=== PATIENT | male | born 1940 | race Caucasian/White ===

== ENCOUNTER → 2016-12-05 | Outpatient (CLI) | payer MEDICARE ==
[~2016-12-05] MED LIST: ADV250INH INH; CIPR500T89 PO; FINA5TAB2 PO; FLAG500T PO; NORTRIPTYLINE PO; TAMS0.4C PO
--- NOTE | 2016-12-07 10:18 | SLEEPCENT ---
DATE OF PROCEDURE: 12/05/2016 ORDERED BY: Johana Alvarez Nocturnal polysomnography was performed for the titration of pressure therapy in this patient with obstructive sleep apnea syndrome and apnea-hypopnea index of 22.7. For testing, the patient was fit with a [id number] Quattro full face mask of medium size and 4 cm of water pressure were applied to the circuit and the lights were extinguished. 6 hours and 57 minutes of data were reviewed. There were 332 minutes of sleep identified. Sleep latency was short at 6 minutes. Rapid eye movement (REM) latency was short at 70 minutes. Sleep architecture was improved over the course of the study. There were 3 REM periods appreciated. There was a period of wake around 3:00 a.m. which reduced the sleep efficiency to 80.9%. The patient's electrocardiogram (EKG) showed a sinus rhythm with an average heart rate of 78 beats per minute. Electroencephalogram (EEG) showed reasonably normal waveforms for awake and sleep. Respiratory events were best palliated with CPAP at a pressure +7. CPAP tolerance was good. The remaining measures of sleep physiology were normal. IMPRESSION: Obstructive sleep apnea syndrome (G47.33). RECOMMENDATION: Nightly use of pressure therapy at 7 cm of water.
== END | disposition home or self-care (01) ==
LOC: M SLEEP 20:30
PROVIDERS: ATTEND Nurse Practitioner Adult Health
DX: G47.33 Obstructive sleep apnea (adult) (pediatric) (principal)

== ENCOUNTER → 2016-12-18 | Outpatient (REF) | payer MEDICARE | LOC: M LAB REF 10:28 | PROVIDERS: ATTEND Physician Assistant Medical | DX: M54.9 Dorsalgia, unspecified (principal) ==

== ENCOUNTER → 2019-03-07 | Outpatient (CLI) | payer MEDICARE ==
--- NOTE | 2019-03-07 12:35 | REP ---
RIGHT KNEE SERIES: Five views. HISTORY: Pain in the right knee. FINDINGS: Some clothing artifact is seen over the distal thigh. There is patellar spurring laterally on the sunrise view. There is a dystrophic calcification in the medial soft tissues anteriorly on the sunrise view as well. There are two or three dystrophic calcifications in the pretibial soft tissues. Bones, joints, and soft tissues are otherwise unremarkable. IMPRESSION: Lateral patellar spurring. No acute bony abnormality. There are a few dystrophic soft-tissue calcifications. Electronically Signed by Bismark Jenkins MD 03/07/2019 03:43 P
== END ==
LOC: M ADAMS 08:56
PROVIDERS: ATTEND Physician Assistant Medical
DX: M25.761 Osteophyte, right knee (principal)

== ENCOUNTER → 2019-05-30 | Outpatient (REF) | payer MEDICARE | LOC: M LAB REF 12:13 | PROVIDERS: ATTEND Physician Assistant Medical | DX: N39.0 Urinary tract infection, site not specified (principal) ==

== ENCOUNTER → 2019-06-27 | Outpatient (REF) | payer MEDICARE ==
[~2019-06-27] MED LIST changes: +AZO1TAB PO; +BRIM2OPD OU; +CEPH500C PO; +LEVA750T7 PO; +LEVO750T13 PO; +NORT10CA2 PO; +PRED10TA2 PO; +TAMS1CAP17 PO; +XALA0.007 OU
[2019-06-27 13:40] LABS: APPEARANCE, URINE CLEAR (CLEAR); BACTERIA, URINE AUTO NEGATIVE (NEGATIVE); BILIRUBIN, URINE AUTO NEGATIVE (NEGATIVE); BLOOD, URINE BLOOD NEGATIVE (NEGATIVE); COLOR, URINE YELLOW (YELLOW); GLUCOSE, URINE (UA) AUTO NEGATIVE (NEGATIVE); KETONE, URINE AUTO NEGATIVE (NEGATIVE); LEUKOCYTE ESTERASE, URINE AUTO NEGATIVE (NEGATIVE); NITRITE, URINE AUTO NEGATIVE (NEGATIVE); PROTEIN, URINE AUTO NEGATIVE (NEGATIVE); RBC, URINE AUTO 1 /HPF (0-3); SPECIFIC GRAVITY URINE AUTO 1.013 (1.002-1.035); SQUAMOUS EPITHELIAL CELL UR AU 0 /HPF (0-6); UROBILINOGEN, URINE AUTO 0.2 mg/dL (0.0-2.0); WBC, URINE AUTO 0 /HPF (0-3)
== END ==
LOC: M LAB REF 12:34
PROVIDERS: ATTEND Family Medicine
DX: R31.9 Hematuria, unspecified (principal)

== ENCOUNTER → 2019-09-12 | Outpatient (CLI) | payer MEDICARE ==
[~2019-09-12] MED LIST changes: -AZO1TAB PO; -BRIM2OPD OU; -CEPH500C PO; -LEVA750T7 PO; -LEVO750T13 PO; -NORT10CA2 PO; -PRED10TA2 PO; -TAMS1CAP17 PO; -XALA0.007 OU
--- NOTE | 2019-09-12 16:10 | REP ---
MRI brain/IACs: 09/12/2019. New indication: Hearing loss. New comparison: None. Technique: Multiplanar short and long TR sequences of the brain/IACs were performed without IV Gadolinium. Findings: The cerebellopontine/medullary angles and IACs are unremarkable. The membranous labyrinth are unremarkable as well. There are no areas of restricted diffusion. There is no intracranial mass effect or shift of the midline structures. The ventricles are mildly prominent, likely representing central greater than cortical volume loss. Chronic-appearing new left thalamic lacunar infarction is present. There are a few small foci of elevated T2 signal within the cerebral hemisphere white matter most consistent with sequelae of chronic small vessel disease. The midline structures, and craniocervical junction are unremarkable. Impression: Unremarkable IACs. 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 Electronically Signed by Michael Mcmillan DO 09/12/2019 04:02 P
== END ==
LOC: M RAD 14:39
PROVIDERS: ATTEND Otolaryngology
DX: H90.A22 Sensorineural hearing loss, unilateral, left ear, with restricted hearing on the contralateral side (principal)

== ENCOUNTER → 2019-10-05 | Outpatient (REF) | payer MEDICARE ==
[~2019-10-05] MED LIST changes: +AZO1TAB PO; +BRIM2OPD OU; +CEPH500C PO; +NORT10CA2 PO; +PRED10TA2 PO; +TAMS1CAP17 PO; +XALA0.007 OU
== END ==
LOC: M LAB REF 17:21
PROVIDERS: ATTEND Physician Assistant Medical
DX: N39.0 Urinary tract infection, site not specified (principal)

== ENCOUNTER 2019-10-07 11:26 | Observation (INO) | payer MEDICARE ==
[~2019-10-07] VITALS: Ht 175.3 cm; Wt 95.7 kg
[~2019-10-07 11:26] MED LIST changes: -AZO1TAB PO; -BRIM2OPD OU; -CEPH500C PO; -NORT10CA2 PO; -PRED10TA2 PO; -TAMS1CAP17 PO; -XALA0.007 OU
[2019-10-07] MEDS ORDERED: TAMS1CAP17 PO (11:45)
[2019-10-07] MEDS ORDERED: PRED10TA2 PO (11:45)
[2019-10-07] MEDS ORDERED: CEPH500C PO (11:45)
[2019-10-07] MEDS ORDERED: AZO1TAB PO (11:45)
[2019-10-07] MEDS ORDERED: NORT10CA2 PO (11:45)
[2019-10-07 12:25] LABS: BASO % 0.1 % (0.0-1.0); EOS % 0.2 % (0.0-3.0); HEMATOCRIT 39.5 % (42.0-52.0); HEMOGLOBIN 13.4 g/dl (13.5-17.5); LYMPH # 0.7 10^3/uL (1.5-5.0); LYMPH % 7.9 % (24.0-44.0); MEAN CORPUSCULAR HEMOGLOBIN 31.2 pg (27.0-33.0); MEAN CORPUSCULAR HGB CONC 33.9 g/dl (32.0-36.5); MEAN CORPUSCULAR VOLUME 92.1 fl (80.0-96.0); MONO # 0.5 10^3/uL (0.0-0.8); MONO % 6.3 % (0.0-5.0); NEUTROPHILS # 7.2 10^3/uL (1.5-8.5); NEUTROPHILS % 84.9 % (36.0-66.0); PLATELET COUNT, AUTOMATED 246 10^3/uL (150-450); RED BLOOD COUNT 4.29 10^6/uL (4.30-6.10); WHITE BLOOD COUNT 8.5 10^3/uL (4.0-10.0)
[2019-10-07] MEDS ORDERED: NS 1,000 ML IV SCH (12:30)
[2019-10-07 12:59] LABS: OSMOLALITY SERUM 284 MOSM/KG (280-301)
[2019-10-07 13:07] LABS: ALBUMIN 2.8 GM/DL (3.2-5.2); ALT/SGPT 38 U/L (12-78); BILIRUBIN,DIRECT 0.1 MG/DL (0.0-0.2); BILIRUBIN,TOTAL 0.3 MG/DL (0.2-1.0); BLOOD UREA NITROGEN 18 MG/DL (7-18); CALCIUM LEVEL 8.4 MG/DL (8.8-10.2); CARBON DIOXIDE LEVEL 23 MEQ/L (21-32); CHLORIDE LEVEL 106 MEQ/L (98-107); CK-MB VALUE MASS 4.1 NG/ML (<3.6); CPK CREATINE PHOSPHOKINASE 102 U/L (39-308); CREATININE FOR GFR 0.86 MG/DL (0.70-1.30); GLOMERULAR FILTRATION RATE > 60.0 (>42); GLUCOSE, FASTING 120 MG/DL (70-100); MB/CK RELATIVE INDEX 4.02 (< OR =4); POTASSIUM SERUM 4.3 MEQ/L (3.5-5.1); SODIUM LEVEL 138 MEQ/L (136-145); TOTAL PROTEIN 6.1 GM/DL (6.4-8.2); TROPONIN I < 0.02 NG/ML (< 0.10)
--- NOTE | 2019-10-07 13:19 | REP ---
CT BRAIN WITHOUT CONTRAST: 10/07/2019. CLINICAL HISTORY: Altered mental status. COMPARISON: MRI brain 09/12/2019. FINDINGS: The lateral ventricles are symmetric, mildly prominent but without displacement. Third and fourth ventricles also proportionate. There is mild diffuse atrophy, and all of this is proportionate and age appropriate. No intraventricular, parenchymal, or extra-axial hemorrhage. There are a few punctate calcifications in the basal ganglia, symmetric. The small lacunar infarct seen in the left thalamus on MRI is not readily discerned. Cortical stripe is preserved aside from the atrophy. There is no acute infarct, mass, or mass effect. No extra-axial fluid collections. Chronic small vessel white matter ischemic changes are noted. Brainstem is intact. Cerebellum shows atrophy but no mass or infarct. No posterior fossa bleed. The mastoids and visible sinuses are without significant finding. There are some vascular calcifications in the carotid siphons. The skull base, calvarium, and limited portions of the orbits visualized are unremarkable. IMPRESSION: 1. Some mild ventriculomegaly and proportionate atrophy, age appropriate. 2. There is no intracranial hemorrhage, acute infarct, mass, edema, or other significant finding. 3. Mastoids, visualized sinuses, skull base, and calvarium without any definite acute finding. Electronically Signed by Benjamin James MD 10/07/2019 05:12 P
[2019-10-07] MEDS ORDERED: XALA0.007 OU (14:31)
[2019-10-07] MEDS ORDERED: BRIM2OPD OU (14:31)
[2019-10-07] MEDS ORDERED: ADV250INH INH (14:31)
[2019-10-07] MEDS ORDERED: ACETAMINOPHEN TAB 650MG DOSE (2X325MG) PO PRN (15:00)
[2019-10-07] MEDS ORDERED: ADVAIR HFA 115/21MCG INHALER INH PRN (15:00)
[2019-10-07] MEDS ORDERED: LABETALOL HCL 100 MG/20 ML VIAL IV STA (15:19)
--- NOTE | 2019-10-07 15:45 | ECGEPIP ---
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
--- NOTE | 2019-10-07 16:54 | HPEPDOC ---
General Date of Admission Oct 07, 2019 at 11:27 Date of Service: Oct 07, 2019 Attending Physician: JOAN DAI MD Chief Complaint The patient is a 79-year-old male admitted with a reason for visit of Altered Mental Status. 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 and started on prednisone with a taper over approximately 1.4 months who presents with worsening confusion that began a few weeks ago but last night the family awoke to him working to take apart the furnace of the house without a coherent explanation decided to bring him into the ED for evaluation. Mr. Tolentino developed left hearing loss at the beginning of August that was associated with severe tinnitus that would have him hold his ear in pain, such that his family took him to urgent care clinic that examined him and did not find acute pathology. He was referred to audiology where testing proved the unilateral hearing loss and he was eventually referred to Dr. Norm Orozco who started him on pred 60 BID with a taper weekly which he is now on 10 daily to end tomorrow. During the time on prednisone his course was c/b Le edema, development of petechiae on his lower extremities in his feet and bilateral knees that was initially pruritic but improved with a steroid cream. He then developed bilateral ankle pitting edema that also resolved with reduction of salt intake, and recently developed dry skin with bilateral confluent macular rash in his medial thighs with a mildly erythematous base. He has also had a large appetite and has been full of energy taking on multiple house projects to keep busy. Most prominent and perhaps most severe has been the confusion over the last 2-3 weeks. His daughter in-law who was present during our initial conversation described him getting lost on his way home driving two weeks ago and noted that he even reported feeling confused and cloudy. Last night however, he woke up and attempted to take apart the house furnace and that is when they brought him in. Meanwhile a few day prior to this presentation, he had acute urinary retention and the family took him to urgent care where he was diagnosed with a UTI and started on Keflex 500 BID that he just started ye sterday. He also has swelling and erythema of his right middle finger that they noted in the last 24 hours. He however did not have fever, chills, diarrhea, constipation, headaches, nausea, vomiting, blurry vision, asymmetrical weakness, facial droop or dysarthria. In the ED vitals were BP 179/100, P96, 95% on RA and remained afebrile. He denied any pain. Initial evaluation showed WBC 8.5, Hgb 13.4, Hct 39.5, platelets 246, Na 138, K 4.3, Cr 0.86, glucose 120, lactate 1, NH3 17, TSH 1.9, unremarkable LFTs, UA with +nitrites while a noncon head CT showed no acute pathology. Of note, he had a recent MRI brain on 09/03 that showed an old left thalamic lacunar infarct and a normal membranous labyrinth. He was given 1L NS and admitted to medicine for AMS likely secondary to steroid therapy Home Medications Scheduled Brimonidine Tartrate (Brimonidine Tartrate) 0.15% 5ML Drops, 1 DROP OU BID, (Reported) Cephalexin (Cephalexin) 500 Mg Capsule, 500 MG PO TID, (Reported) STARTED ON 10/05 FOR 7 DAYS Latanoprost (Xalatan) 0.005% 2.5ML Drops, 1 DROP OU QHS, (Reported) Nortriptyline HCl (Nortriptyline HCl) 10 Mg Capsule, 10 MG PO BID, (Reported) Phenazopyridine HCl (Azo Urinary Pain Relief) 97.5 Mg Tablet, 97.5 MG PO TID, (Reported) Prednisone (Prednisone) 10 Mg Tablet, 10 MG PO DAILY, (Reported) TAPER ENDS ON 10/09 Tamsulosin Hcl (Tamsulosin HCl) 0.4 Mg Capsule, 0.4 MG PO DAILY, (Reported) Scheduled PRN Salmeterol/Fluticasone (Advair 250-50 Diskus) 1 Each Blst.w.dev, 1 PUFF INH BID PRN for SEASONAL ALLERGY SYMPTOMS, (Reported) Allergies Coded Allergies: No Known Allergies (Unverified , 10/07/19) A-FIB/CHADSVASC A-FIB History Current/History of A-Fib/PAF?: No Current PO Anticoag Therapy: No Age/Risk Factor Scoring CHADSVASC: CHADSVASC Response (Comments) Value Age Risk Factor Age >/= 75 years old 2 Gender Risk Factor Male 0 Hx of CHF No 0 Hx of HTN No 0 Hx of Stroke/TIA/or VTE Yes 2 Hx of Diabetes No 0 Hx of Vascular Disease Yes 1 Total 5 Treatment Treatment ordered: NONE Reason Anticoagulant not given: Not indicated/[id number] Vital Signs Vital Signs Date Time Temp Pulse Resp B/P (MAP) Pulse Ox O2 Delivery O2 Flow Rate FiO2 10/07/19 13:45 99 18 161/98 (119) 94 Room Air 10/07/19 11:26 96.4 Laboratory Data Labs 24H Laboratory Tests 2 10/07/19 12:08: Immature Granulocyte % (Auto) 0.6, Neutrophils (%) (Auto) 84.9H, Lymphocytes (%) (Auto) 7.9L, Monocytes (%) (Auto) 6.3H, Eosinophils (%) (Auto) 0.2, Basophils (%) (Auto) 0.1, Neutrophils # (Auto) 7.2, Lymphocytes # (Auto) 0.7L, Monocytes # (Auto) 0.5, Eosinophils # (Auto) 0.0, Basophils # (Auto) 0.0, Nucleated Red Blood Cells % (auto) 0.0, Urine Color YELLOW, Urine Appearance CLEAR, Urine pH 6.0, Urine Specific [place] 1.003, Urine Protein NEGATIVE, Urine Glucose (UA) NEGATIVE, Urine Ketones NEGATIVE, Urine Blood NEGATIVE, Urine Nitrite POSITIVEH, Urine Bilirubin NEGATIVE, Urine Urobilinogen 0.2, Urine Leukocyte Esterase NEGATIVE, Urine WBC (Auto) 0, Urine RBC (Auto) 2, Urine Hyaline Casts (Auto) 0, Urine Bacteria (Auto) NEGATIVE, Urine Squamous Epithelial Cells 0, Urine Sperm (Auto) , Anion Gap 9, Glomerular Filtration Rate > 60.0, Osmolality 284, Lactic Acid Level 1.0, Calcium Level 8.4L, Total Bilirubin 0.3, Direct Bilirubin 0.1, Aspartate Amino Transf (AST/SGOT) 18, Alanine Aminotransferase (ALT/SGPT) 38, Alkaline Phosphatase 81, Ammonia 17, Total Creatine Kinase 102, Creatine Kinase MB 4.1H, Creatine Kinase MB Relative Index 4.02H, Troponin I < 0.02, Total Protein 6.1L, Albumin 2.8L, Albumin/Globulin Ratio 0.85L, Thyroid Stimulating Hormone (TSH) 1.900 CBC/BMP Laboratory Tests 10/07/19 12:08 Microbiology Microbiology 10/07/19 Urine Culture, Received Pending 10/07/19 Blood Culture, Received Pending 10/07/19 Blood Culture, Received Pending Assessment/Plan 79 yo man with a history of OA, asthma and BPH who recently had unilateral left hearing loss with associated tinnitus that prompted ENT evaluation and 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 and started on high dose prednisone with a taper over approximately 1.4 months who presents with worsening confusion over a few weeks, with associated dry skin and transient LE edema likely 2/2 iatrogenic effect of his prednisone. AMS: Combination of steroid induced encephalopathy and possible metabolic encephalopathy from the recently diagnosed UTI -non con head CT without acute pathology -NH3 within normal range -Electrolytes within normal range -Given the acute changes that started within the month of taking the steroids, as well as the rest of the cutaneous side effects of steroids, with noted increased appetite, insomnia, increased energy, supports a diagnosis of steroid induced confusion/delirium -Thankfully, Mr. Tolentino is on his last two pills of pred 10 and so I will stop them at this time and observe him -monitor mentation, may require PRN dosing of antipsychotics if he has kamilla delirium or insomnia -continue keflex for the UTI with a repeat UCx UTI: -continue Keflex 500 BID -follow up urine culture Right middle finger cellulitis: -continue keflex 500 BID BPH: -continue home tamsulosin Asthma: no exacerbation at this time -may offer PRN albuterol if indicated, stable at this time Hypertension: -monitor for now, may start an antihypertensive if persistent DVT prophylaxis: Lovenox SC Diet: regular 2g salt Plan / VTE VTE Prophylaxis Ordered?: Yes JOAN DAI MD Oct 07, 2019 16:54
[2019-10-07 17:59] VITALS: BP 150/79
[2019-10-07] MEDS: NORTRIPTYLINE 10 MG CAP PO SCH (20:20)
[2019-10-07] MEDS: TAMSULOSIN 0.4 MG CAP PO SCH (20:20)
[2019-10-07] MEDS: CEPHALEXIN 500 MG CAP PO SCH (20:21)
[2019-10-07] MEDS: BRIMONIDINE 0.15% OPHTH SOLN 5 ML OU SCH (20:21)
[2019-10-07] MEDS: LATANOPROST 0.005% OPHTH SOLN 2.5 ML OU SCH (20:21)
[2019-10-07 22:00] VITALS: BP 123/71
[2019-10-08 05:41] LABS: HEMATOCRIT 39.5 % (42.0-52.0); HEMOGLOBIN 13.3 g/dl (13.5-17.5); MEAN CORPUSCULAR HEMOGLOBIN 30.9 pg (27.0-33.0); MEAN CORPUSCULAR HGB CONC 33.7 g/dl (32.0-36.5); MEAN CORPUSCULAR VOLUME 91.6 fl (80.0-96.0); PLATELET COUNT, AUTOMATED 244 10^3/uL (150-450); RED BLOOD COUNT 4.31 10^6/uL (4.30-6.10)
[2019-10-08 06:00] VITALS: BP 126/73
[2019-10-08 06:05] LABS: BLOOD UREA NITROGEN 16 MG/DL (7-18); CALCIUM LEVEL 8.7 MG/DL (8.8-10.2); CARBON DIOXIDE LEVEL 25 MEQ/L (21-32); CHLORIDE LEVEL 104 MEQ/L (98-107); GLOMERULAR FILTRATION RATE > 60.0 (>42); GLUCOSE, FASTING 113 MG/DL (70-100); SODIUM LEVEL 136 MEQ/L (136-145)
[2019-10-08] MEDS: ENOXAPARIN 40 MG/0.4 ML SYRINGE (J1650) SC SCH (08:53)
[2019-10-08] MEDS: TAMSULOSIN 0.4 MG CAP PO SCH (08:53)
[2019-10-08] MEDS: CEPHALEXIN 500 MG CAP PO SCH ×3 (08:53→20:54)
[2019-10-08] MEDS: NORTRIPTYLINE 10 MG CAP PO SCH ×2 (08:53→20:54)
[2019-10-08] MEDS: BRIMONIDINE 0.15% OPHTH SOLN 5 ML OU SCH ×2 (08:54→20:54)
[2019-10-08 14:00] VITALS: BP 138/67
--- NOTE | 2019-10-08 17:16 | IPNPDOC ---
Date Seen The patient was seen on 10/08/19. Progress Note SUBJECTIVE: 79-year-old male with past medical history of osteoarthritis, asthma, BPH, who was recently treated with long-term high-dose steroids for vestibular neuritis was admitted for altered mental status. Patient exhibited symptoms of chronic steroid use with symptoms of edema, frail skin, elevated blood pressure, altered mental status. Patient has not returned to baseline, confirmed by family about it, currently without any complaints. He denies any short of breath, chest pain, nausea, vomiting, abdominal pain or diarrhea. Patient was evaluated and cleared by physical therapy. 10 point review of system is negative except for above PHYSICAL EXAMINATION: VITAL SIGNS: Please see below. GENERAL: No distress HEENT: Normocephalic, atraumatic, moist mucous membranes NECK: Supple CARDIOVASCULAR EXAMINATION: S1, S2, no murmurs RESPIRATORY EXAMINATION: Clear to auscultation, no wheezing ABDOMINAL EXAMINATION: Soft, nontender, nondistended, positive bowel sounds EXTREMITIES: Range of motion intact SKIN: No rash NEUROLOGICAL EXAMINATION: Alert and oriented 3, no focal deficits PSYCHIATRIC EXAMINATION: Calm and cooperative LABORATORY DATA, IMAGING STUDIES, MICROBIOLOGY: Please see below. ASSESSMENT AND PLAN: 79-year-old male with past medical history of osteoarthritis, asthma, BPH, was admitted for altered mental status secondary to chronic steroid use. PROBLEMS: 1. Adverse effects of chronic systemic steroid use: Patient experiencing altered mentation, edema, frail skin and hypertension. Completed his steroid regimen yesterday, was on high-dose systemic steroids for 3 weeks followed by a long slow taper for vestibular neuritis. Patient now at his baseline, without any complaints. 2. UTI: Continue Keflex 3. BPH: Continue Flomax DVT prophylaxis: Lovenox. GI prophylaxis: Not needed VS, I&O, 24H, Fishbone Vital Signs/I&O Vital Signs Date Time Temp Pulse Resp B/P (MAP) Pulse Ox O2 Delivery O2 Flow Rate FiO2 10/08/19 14:00 97.9 78 17 138/67 (90) 98 Room Air I&O- Last 24 Hours up to 6 AM 10/08/19 06:00 Intake Total 520 ml Output Total 1900 ml Balance -1380 ml Laboratory Data 24H LABS Laboratory Tests 2 10/08/19 05:13: Nucleated Red Blood Cells % (auto) 0.0, Anion Gap 7L, Glomerular Filtration Rate > 60.0, Calcium Level 8.7L CBC/BMP Laboratory Tests 10/08/19 05:13 Microbiology Microbiology 10/07/19 Urine Culture, Received Pending 10/07/19 Blood Culture - Preliminary, Resulted No growth after 24 hours . All specim... 10/07/19 Blood Culture - Preliminary, Resulted No growth after 24 hours . All specim... RENEA BEGUM MD Oct 08, 2019 17:16
[2019-10-08] MEDS: LATANOPROST 0.005% OPHTH SOLN 2.5 ML OU SCH (20:54)
[2019-10-08 22:00] VITALS: BP 138/86
[2019-10-09 06:00] VITALS: BP 129/81
[2019-10-09] MEDS ORDERED: LevoFLOXacin 750 MG TABLET PO SCH (06:00)
[2019-10-09 06:13] LABS: HEMOGLOBIN 12.6 g/dl (13.5-17.5); MEAN CORPUSCULAR HEMOGLOBIN 31.1 pg (27.0-33.0); MEAN CORPUSCULAR HGB CONC 34.1 g/dl (32.0-36.5); MEAN CORPUSCULAR VOLUME 91.4 fl (80.0-96.0); PLATELET COUNT, AUTOMATED 239 10^3/uL (150-450); RED BLOOD COUNT 4.05 10^6/uL (4.30-6.10); WHITE BLOOD COUNT 7.4 10^3/uL (4.0-10.0)
[2019-10-09 06:33] LABS: BLOOD UREA NITROGEN 20 MG/DL (7-18); CARBON DIOXIDE LEVEL 23 MEQ/L (21-32); CHLORIDE LEVEL 105 MEQ/L (98-107); CREATININE FOR GFR 1.01 MG/DL (0.70-1.30); GLOMERULAR FILTRATION RATE > 60.0 (>42); GLUCOSE, FASTING 95 MG/DL (70-100); MAGNESIUM LEVEL 2.1 MG/DL (1.8-2.4); PHOSPHORUS LEVEL 2.7 MG/DL (2.5-4.9); POTASSIUM SERUM 3.9 MEQ/L (3.5-5.1); SODIUM LEVEL 135 MEQ/L (136-145)
[2019-10-09] MEDS: TAMSULOSIN 0.4 MG CAP PO SCH (09:01)
[2019-10-09] MEDS: ENOXAPARIN 40 MG/0.4 ML SYRINGE (J1650) SC SCH (09:01)
[2019-10-09] MEDS: BRIMONIDINE 0.15% OPHTH SOLN 5 ML OU SCH (09:01)
[2019-10-09] MEDS: NORTRIPTYLINE 10 MG CAP PO SCH (09:01)
[2019-10-09] MEDS ORDERED: LEVA750T7 PO (11:53)
--- NOTE | 2019-10-09 15:05 | DS.PDOC ---
Discharge Summary General Date of Admission Oct 07, 2019 at 11:27 Date of Discharge 10/09/2019 Attending Physician: RENEA BEGUM MD Discharge Summary PROCEDURES PERFORMED DURING STAY: None. ADMITTING DIAGNOSES: 1. Adverse effects of chronic steroid use, UTI. DISCHARGE DIAGNOSES: 1. Adverse effects of chronic steroid use, UTI. COMPLICATIONS/CHIEF COMPLAINT: Altered Mental Status. HISTORY OF PRESENT ILLNESS: 79-year-old male with past medical history of osteoarthritis, BPH, was admitted for adverse effects of chronic steroid use that he was prescribed for vestibular neuritis. Patient was initially presenting with altered mental status, high blood pressure, skin changes related to steroid use. His last dose of steroid taper was yesterday, mentation had returned to baseline, no changes during hospitalization. Patient is clinically stable, no hemodynamic compromise at this time. Patient was also found to have UTI secondary to Pseudomonas, antibiotics, switched to Levaquin, will be discharged home on Levaquin to complete antibiotic course. HOSPITAL COURSE: As above. DISCHARGE MEDICATIONS: Please see below. ALLERGIES: Please see below. PHYSICAL EXAMINATION: VITAL SIGNS: Please see below. GENERAL: No distress HEENT: Normocephalic, atraumatic, moist mucous membranes NECK: Supple CARDIOVASCULAR EXAMINATION: S1, S2, no murmurs RESPIRATORY EXAMINATION: Clear to auscultation, no wheezing ABDOMINAL EXAMINATION: Soft, nontender, nondistended, positive bowel sounds EXTREMITIES: Range of motion intact SKIN: No rash NEUROLOGICAL EXAMINATION: Alert and oriented 3, no focal deficits PSYCHIATRIC EXAMINATION: Calm and cooperative LABORATORY DATA: Please see below. PROGNOSIS: Fair ACTIVITY: As tolerated. DIET: Cardiac DISCHARGE PLAN: Follow with PCP 1-2 weeks DISPOSITION: 01 Home, Self-Care. DISCHARGE INSTRUCTIONS: 1. As above. DISCHARGE CONDITION: Stable. TIME SPENT ON DISCHARGE: Greater than 25 minutes. Vital Signs/I&Os Vital Signs Date Time Temp Pulse Resp B/P (MAP) Pulse Ox O2 Delivery O2 Flow Rate FiO2 10/09/19 06:00 98.0 84 18 129/81 (97) 92 Room Air I&O- Last 24 Hours up to 6 AM 10/09/19 06:00 Intake Total 1950 ml Output Total 0 ml Balance 1950 ml Laboratory Data Labs 24H Laboratory Tests 2 10/09/19 05:07: Nucleated Red Blood Cells % (auto) 0.0, Anion Gap 7L, Glomerular Filtration Rate > 60.0, Calcium Level 8.0L, Phosphorus Level 2.7, Magnesium Level 2.1 CBC/BMP Laboratory Tests 10/09/19 05:07 Microbiology Microbiology 10/07/19 Urine Culture - Final, Complete Pseudomonas Aeruginosa 10/07/19 Blood Culture - Preliminary, Resulted No Growth after 48 hours. All Specime... 10/07/19 Blood Culture - Preliminary, Resulted No Growth after 48 hours. All Specime... Discharge Medications Scheduled Brimonidine Tartrate (Brimonidine Tartrate) 0.15% 5ML Drops, 1 DROP OU BID, (Reported) Latanoprost (Xalatan) 0.005% 2.5ML Drops, 1 DROP OU QHS, (Reported) Levofloxacin (Levaquin) 750 Mg Tablet, 750 MG PO DAILY Nortriptyline HCl (Nortriptyline HCl) 10 Mg Capsule, 10 MG PO BID, (Reported) Phenazopyridine HCl (Azo Urinary Pain Relief) 97.5 Mg Tablet, 97.5 MG PO TID, (Reported) Tamsulosin Hcl (Tamsulosin HCl) 0.4 Mg Capsule, 0.4 MG PO DAILY, (Reported) Scheduled PRN Salmeterol/Fluticasone (Advair 250-50 Diskus) 1 Each Blst.w.dev, 1 PUFF INH BID PRN for SEASONAL ALLERGY SYMPTOMS, (Reported) Allergies Coded Allergies: No Known Allergies (Unverified , 10/07/19) RENEA BEGUM MD Oct 09, 2019 15:05
== END 2019-10-09 14:10 | disposition home or self-care (01) ==
LOC: M ED 11:26 → M ED INP 11:27 → M MSPAV 17:58
PROVIDERS: ADMIT Internal Medicine; ATTEND Internal Medicine
DX: R41.82 Altered mental status, unspecified (principal); T38.0X5A Adverse effect of glucocorticoids and synthetic analogues, initial encounter; N39.0 Urinary tract infection, site not specified; B96.5 Pseudomonas (aeruginosa) (mallei) (pseudomallei) as the cause of diseases classified elsewhere; Z79.52 Long term (current) use of systemic steroids; N40.0 Benign prostatic hyperplasia without lower urinary tract symptoms; I10 Essential (primary) hypertension; J45.909 Unspecified asthma, uncomplicated; H90.42 Sensorineural hearing loss, unilateral, left ear, with unrestricted hearing on the contralateral side; Z79.899 Other long term (current) drug therapy
CPT/HCPCS: 36415; 70450; 80048; 80076; 81001; 82140; 82550; 82553; 83605; 83735; 83930; 84100; 84443; 84484; 85025; 85027; 86780; 87040; 87088; 87186; 93005; 93041; 94760; 96360; 97161; 99285; G0378; J1650

== ENCOUNTER 2019-10-13 15:54 | Inpatient (IN) | payer MEDICARE ==
[~2019-10-13] VITALS: Ht 177.8 cm; Wt 94.2 kg
[~2019-10-13 15:54] MED LIST changes: +AZO1TAB PO; +BRIM2OPD OU; +CEPH500C PO; +LEVA750T7 PO; +NORT10CA2 PO; +PRED10TA2 PO; +TAMS1CAP17 PO; +XALA0.007 OU
[2019-10-13] MEDS ORDERED: ACETAMINOPHEN TAB 650MG DOSE (2X325MG) PO ONE (17:45)
[2019-10-13] MEDS ORDERED: NS 1,000 ML IV ONE (17:45)
[2019-10-13 18:18] LABS: HEMOGLOBIN 11.9 g/dl (13.5-17.5); MEAN CORPUSCULAR HEMOGLOBIN 30.3 pg (27.0-33.0); MEAN CORPUSCULAR HGB CONC 33.1 g/dl (32.0-36.5); MEAN CORPUSCULAR VOLUME 91.6 fl (80.0-96.0); PLATELET COUNT, AUTOMATED 321 10^3/uL (150-450); RED BLOOD COUNT 3.93 10^6/uL (4.30-6.10); WHITE BLOOD COUNT 9.9 10^3/uL (4.0-10.0)
[2019-10-13 18:39] LABS: ALBUMIN 2.2 GM/DL (3.2-5.2); ALT/SGPT 48 U/L (12-78); BILIRUBIN,DIRECT 0.1 MG/DL (0.0-0.2); BILIRUBIN,TOTAL 0.3 MG/DL (0.2-1.0); BLOOD UREA NITROGEN 18 MG/DL (7-18); CALCIUM LEVEL 8.1 MG/DL (8.8-10.2); CARBON DIOXIDE LEVEL 23 MEQ/L (21-32); CHLORIDE LEVEL 99 MEQ/L (98-107); CREATININE FOR GFR 0.92 MG/DL (0.70-1.30); GLOMERULAR FILTRATION RATE > 60.0 (>42); GLUCOSE, FASTING 106 MG/DL (70-100); MAGNESIUM LEVEL 1.9 MG/DL (1.8-2.4); POTASSIUM SERUM 4.2 MEQ/L (3.5-5.1); SODIUM LEVEL 133 MEQ/L (136-145); TOTAL PROTEIN 5.8 GM/DL (6.4-8.2)
--- NOTE | 2019-10-13 19:33 | REP ---
Portable chest x-ray: Single view. History: Fever and cough. Comparison chest x-ray: July 25, 2012. Findings: Heart is not enlarged. The lungs are exposed at a lesser level of inspiration. There is increased density in the right upper lobe distribution and there is some linear opacities in the left perihilar region. Suspect infiltrate right upper lobe and linear fibrosis in the left perihilar region. Pleural angles are sharp. Impression: Suspect right upper lobe infiltrate. Left perihilar linear fibrosis. Otherwise no acute disease. Electronically Signed by Bismark Jenkins MD 10/13/2019 07:25 P
[2019-10-13] MEDS ORDERED: ISOVUE-370 76% 100ML VIAL (Q9967) As Ordered ONE (20:04)
--- NOTE | 2019-10-13 20:53 | REPVR ---
PROCEDURE INFORMATION: Exam: CT Angiography Chest With Contrast Exam date and time: 10/13/2019 8:15 PM Age: 79 years old Clinical history: Cough and fever; Additional info: Cough, fever, hypoxia TECHNIQUE: Imaging protocol: Computed tomographic angiography of the chest with intravenous contrast. 3D rendering: MIP reconstructed images were created and reviewed. Radiation optimization: All CT scans at this facility use at least one of these dose optimization techniques: automated exposure control; mA and/or kV adjustment per patient size (includes targeted exams where dose is matched to clinical indication); or iterative reconstruction. Contrast material: ISOVUE 370; Contrast volume: 75 ml; Contrast route: IV; COMPARISON: CR PORTABLE CHEST X-RAY 10/13/2019 5:57 PM FINDINGS: Pulmonary arteries: There are no pulmonary emboli. Aorta: Ectatic thoracic aorta. There is fusiform dilatation of the ascending thoracic aorta which measures 3.7 cm. maximally. There is no dissection or saccular component. Lungs: Bilateral ground-glass infiltrates in the mid and upper lung zones with a smaller infiltrate in the right lower lobe. Findings may represent acute multifocal pneumonitis although chronic changes not excluded. Atelectasis right lung base. Calcified granuloma right upper lobe. Pleural space: Unremarkable. No pneumothorax. No pleural effusion. Heart: There is moderate atherosclerotic calcification of the coronary arteries. Lymph nodes: Multiple small mediastinal lymph nodes likely postinflammatory. Bones/joints: The spine demonstrates mild degenerative changes. Soft tissues: Unremarkable. IMPRESSION: 1. Bilateral ground-glass infiltrates in the mid and upper lung zones with a smaller infiltrate in the right lower lobe. Differential diagnosis includes infectious processes usually opportunistic, chronic interstitial lung disease, acute alveolar diseases, and viral infection. 2. There is fusiform dilatation of the ascending thoracic aorta which measures 3.7 cm. maximally. There is no dissection or saccular component. 3. There are no pulmonary emboli. Electronically signed by: Avelino Guillaume On 10/13/2019 20:53:27 PM
[2019-10-13] MEDS ORDERED: methylPREDNISolone INJ 125 MG/2 ML VIAL (J2930) IV STA (21:21)
--- NOTE | 2019-10-13 21:21 | HPEPDOC ---
[facility] Medical History & Physical Date of Admission Oct 13, 2019 Date of Service: Oct 13, 2019 Primary Care Physician: HUSSEIN OLIVAS M.D. Attending Physician: ROSHAN PALMA MD History and Physical TIME OF SERVICE: 11:55 PM CHIEF COMPLAINT: Rash HISTORY OF PRESENT ILLNESS: This is a 79-year-old male who came to the hospital today primarily because he developed a rash on his back. He reports that the rash was covering the majority of his back and thinks it may been caused by Levaquin which he was taking for a UTI. For several days he's had a dry cough, intermittent bilateral hand cramping and episodes of rapid breathing. Today he developed fever and chills therefore he decided to come to the ER. He denies having nausea, vomiting, abdominal pain, shortness of breath, chest pain or pressure, or runny nose. REVIEW OF SYSTEMS: 12 point review of systems negative except as listed in HPI PAST MEDICAL/ SURGICAL HISTORY: Chronic asthma. BPH. Osteoarthritis Chronic hypertension Thoracic aortic aneurysm 3.7 cm Status post septoplasty Status post inguinal hernia repair Strip vestibular neuritis History of altered mental status secondary to steroid use ? SOCIAL HISTORY: As Anabaptism. He does not smoke He lives with his FAMILY HISTORY: CAD Throat cancer ALLERGIES: Please see below. HOME MEDICATIONS: Please see below. PHYSICAL EXAMINATION: VITAL SIGNS: Please see below. GEN: well nourished / well developed/ NAD / he does not appear toxic INTEGUMENT: he has a small round flat red lesion that is 3 x 2.5 cm at his left upper back HEENT: normocephalic / atraumatic / lips acyanotic/ does not have pursed lip breathing / NC in place / mucus membranes moist and pink / sclera anicteric CVS: RRR / radial and dorsalis pedis pulses intact /trace extremity edema LUNGS: there is no nasal flaring /he is able to speak full sentences without stopping to take a breath / he is coughing usually /is not using accessory muscles / the lungs are clear to auscultation bilaterally ABDOMEN: there are no masses or lesions / bowel sounds are present / the abdomen is tympanic on percussion, soft & not tender with palpation MSK/EXTREMITIES:he does not have finger nail clubbing/ range of motion intact in all 4 extremities NEURO: CN 2-12 are grossly intact / speech is not dysarthric PSYCH: alert and oriented / able to understand and follow all commands LABORATORY DATA: See below. IMAGING: Chest x-ray: " Impression: Suspect right upper lobe infiltrate. Left perihilar linear fibrosis. Otherwise no acute disease." CT chest " IMPRESSION: 1. Bilateral ground-glass infiltrates in the mid and upper lung zones with a smaller infiltrate in the right lower lobe. Differential diagnosis includes infectious processes usually opportunistic, chronic interstitial lung disease, acute alveolar diseases, and viral infection. 2. There is fusiform dilatation of the ascending thoracic aorta which measures 3.7 cm. maximally. There is no dissection or saccular component. 3. There are no pulmonary emboli. " MICROBIOLOGY: Please see below. ASSESSMENT: Mr. Tolentino is a 79-year-old with a past medical history of chronic hypertension, BPH, asthma, osteoarthritis, thoracic aortic aneurysm, history of steroid- induced altered mental status who will be admitted primarily for management of right lower lobe PNA. PLAN: 1. SIRS Unlikely sepsis because he does not appear toxic and the lactic acid is within normal limits SIRS criteria include Temp >101 / HR >90 Qsofa score =0 = not high risk Plan: admit to PCU / telemetry / IV fluids and antibiotics /f/u blood cx, and sputum Cx / Acetaminophen PRN for fever 2. Right lower lobe pneumonia Symptoms include fever, dry cough, and tachypnea per patient. His O2 sats dropped to 83% on room air He does not have a fever or leukocytosis . Respiratory panel was negative Reports from the Chest x-ray and CT of the abdomen have been reviewed PORT/PSI Score to predict risk of mortality in pt w CAP = 79 = Low risk = Out patient tx vs Observation admisison Shorr Score to identify pts at risk for MRSA PNA = medium risk Plan: continuous pulse ox & supplemental O2/ f/u / ceftriaxone, azithromycin and vancomycin pending sputum cx, blood cx & MRSA / IVF / Tessalon pearls / Acetaminophen PRN for fever 3. Mild Asthma Exacerbation Likely due to pneumonia ABG &influenza panel unremarkable He received magnesium sulfate & Solu-Medrol Plan: c/w supplemental O2 / continuous pulse ox / monitor peak flow / Dunebs Q6H, Albuterol Q4HP / oral Prednisone w PPI / Tessalon Pearls 4. Rash Per patient the rash may be due to Levaquin It appears to have resolved. Plan: He can be referred to an Allergy/Management Consultant for allergy testing on an outpatient basis 5. Cramping of the hands Cause to be determined Negative Tinel sign Plan: Follow-up magnesium 6. Thoracic aortic aneurysm Plan: He can follow-up with his PCP to discuss surveillance imaging 7. BPH / Chronic hypertension Plan: Continue tamsulosin DVT prophylaxis with Lovenox. Disposition: Home after more than 2 midnights stay Vital Signs Vital Signs Date Time Temp Pulse Resp B/P (MAP) Pulse Ox O2 Delivery O2 Flow Rate FiO2 10/13/19 19:15 95 139/77 (97) 96 10/13/19 18:56 100.5 10/13/19 18:24 Nasal Cannula 2.0 10/13/19 18:09 19 Laboratory Data Labs 24H Laboratory Tests 2 10/13/19 17:52: Nucleated Red Blood Cells % (auto) 0.0, Urine Color YELLOW, Urine Appearance CLEAR, Urine pH 5.0, Urine Specific [place] 1.017, Urine Protein NEGATIVE, Urine Glucose (UA) NEGATIVE, Urine Ketones NEGATIVE, Urine Blood NEGATIVE, Urine Nitrite NEGATIVE, Urine Bilirubin NEGATIVE, Urine Urobilinogen 0.2, Urine Leukocyte Esterase NEGATIVE, Urine WBC (Auto) 0, Urine RBC (Auto) 1, Urine Hyaline Casts (Auto) 0, Urine Bacteria (Auto) NEGATIVE, Urine Squamous Epithelial Cells 0, Urine Mucus (Auto) SMALL, Urine Sperm (Auto) , Anion Gap 11, Glomerular Filtration Rate > 60.0, Calcium Level 8.1L, Magnesium Level 1.9, Total Bilirubin 0.3, Direct Bilirubin 0.1, Aspartate Amino Transf (AST/SGOT) 38H, Alanine Aminotransferase (ALT/SGPT) 48, Alkaline Phosphatase 96, Total Protein 5.8L, Albumin 2.2L, Albumin/Globulin Ratio 0.61L CBC/BMP Laboratory Tests 10/13/19 17:52 Microbiology Microbiology 10/13/19 Blood Culture, Received Pending 10/13/19 Blood Culture, Received Pending 10/13/19 Respiratory Virus Panel (PCR) (ANA PAULA) - Final, Complete Home Medications Scheduled Brimonidine Tartrate (Brimonidine Tartrate) 0.15% 5ML Drops, 1 DROP OU BID Latanoprost (Xalatan) 0.005% 2.5ML Drops, 1 DROP OU QHS Levofloxacin (Levofloxacin) 750 Mg Tablet, 750 MG PO DAILY Nortriptyline HCl (Nortriptyline HCl) 10 Mg Capsule, 10 MG PO BID Tamsulosin Hcl (Tamsulosin HCl) 0.4 Mg Capsule, 0.4 MG PO QHS Scheduled PRN Salmeterol/Fluticasone (Advair 250-50 Diskus) 1 Each Blst.w.dev, 1 PUFF INH BID PRN for SEASONAL ALLERGY SYMPTOMS Allergies Coded Allergies: No Known Allergies (Unverified , 10/07/19) A-FIB/CHADSVASC A-FIB History Current/History of A-Fib/PAF?: No Current PO Anticoag Therapy: No ROSHAN PALMA MD Oct 13, 2019 21:21
[2019-10-13] MEDS ORDERED: IPRATROPIUM 0.5MG/ALBUTEROL 2.5MG INH SOL UD 3ML (DUONEB)(J7620) INH PRN (21:30)
[2019-10-13] MEDS ORDERED: ACETAMINOPHEN TAB 650MG DOSE (2X325MG) PO PRN (21:30)
[2019-10-13] MEDS ORDERED: MAG SULF 1GM/100ML (MAG RUN) 1 GM in IV 1 EA IV ONE (21:30)
[2019-10-13] MEDS ORDERED: MOM 30ML SUSPENSION UDC PO PRN (21:30)
[2019-10-13] MEDS ORDERED: MAALOX 30 ML SUSP *UDC PO PRN (21:30)
[2019-10-13] MEDS ORDERED: LEVO750T13 PO (21:38)
[2019-10-13] MEDS: NS 1,000 ML IV SCH (22:11)
[2019-10-13 22:19] LABS: INR 1.21
[2019-10-13 22:31] VITALS: BP 159/86
[2019-10-13 23:00] LABS: ABG BASE EXCESS -1.8 (-2.0-2.0); ABG O2 SATURATION 97.6 % (95.0-99.0); ABG PARTIAL PRESSURE CO2 30.1 mmHg (35.0-45.0); ABG PARTIAL PRESSURE O2 106.3 mmHg (75.0-100.0); ABG STANDARD HCO3 22.9 MEQ/L (22.0-26.0); ABG TOTAL CO2 21.9 MEQ/L (23.0-31.0); ABG pH (ARTERIAL) 7.462 UNITS (7.350-7.450)
[2019-10-13] MEDS: cefTRIAXone SOD 1 GM in D5W MINI-BAG PLUS 50 ML IV SCH (23:41)
[2019-10-14] MEDS: TAMSULOSIN 0.4 MG CAP PO SCH ×2 (00:27→21:12)
[2019-10-14] MEDS: AZITHROMYCIN INJ 500 MG, VIAL MATE ADAPTER 1 EACH in D5W 250 ML IV SCH (00:28)
[2019-10-14] MEDS: NORTRIPTYLINE 10 MG CAP PO SCH ×3 (01:15→21:12)
[2019-10-14] MEDS: BRIMONIDINE 0.15% OPHTH SOLN 5 ML OU SCH ×3 (01:16→21:12)
[2019-10-14] MEDS: LATANOPROST 0.005% OPHTH SOLN 2.5 ML OU SCH ×2 (01:16→21:12)
[2019-10-14] MEDS: IPRATROPIUM 0.5MG/ALBUTEROL 2.5MG INH SOL UD 3ML (DUONEB)(J7620) INH SCH ×7 (02:11→23:20)
[2019-10-14] MEDS ORDERED: VANCOMYCIN HCL 1,000 MG, VIAL MATE ADAPTER 1 EACH in D5W 250 ML IV ONE (02:30)
[2019-10-14] MEDS ORDERED: VANCOMYCIN HCL 500 MG in D5W MINI-BAG PLUS 100 ML IV ONE (03:30)
[2019-10-14 04:00] VITALS: BP 139/82
[2019-10-14] MEDS: BENZONATATE 100 MG CAP PO SCH ×3 (04:59→21:11)
[2019-10-14 05:26] LABS: HEMOGLOBIN 11.6 g/dl (13.5-17.5); MEAN CORPUSCULAR HEMOGLOBIN 30.2 pg (27.0-33.0); MEAN CORPUSCULAR HGB CONC 33.1 g/dl (32.0-36.5); MEAN CORPUSCULAR VOLUME 91.1 fl (80.0-96.0); PLATELET COUNT, AUTOMATED 330 10^3/uL (150-450); RED BLOOD COUNT 3.84 10^6/uL (4.30-6.10); WHITE BLOOD COUNT 6.9 10^3/uL (4.0-10.0)
[2019-10-14 05:40] LABS: BLOOD UREA NITROGEN 11 MG/DL (7-18); CALCIUM LEVEL 8.4 MG/DL (8.8-10.2); CARBON DIOXIDE LEVEL 23 MEQ/L (21-32); CHLORIDE LEVEL 105 MEQ/L (98-107); CREATININE FOR GFR 0.96 MG/DL (0.70-1.30); GLOMERULAR FILTRATION RATE > 60.0 (>42); GLUCOSE, FASTING 198 MG/DL (70-100); MAGNESIUM LEVEL 2.4 MG/DL (1.8-2.4); POTASSIUM SERUM 4.2 MEQ/L (3.5-5.1); SODIUM LEVEL 136 MEQ/L (136-145)
--- NOTE | 2019-10-14 07:00 | PHACANCOPD ---
PHARMACY VANCOMYCIN DOSING Pt Demographics Demographics Patient Age:79 , Weight:93.300 , Gender: male Adjusted Body Weight Date: 10/14/19, Adjusted Body Weight: [81.5] Kg Vancomycin Vancomycin indication: EMPIRIC FOR MRSA PNEUMONIA Vancomycin Target Ranges: 15-20 mcg/ml Vancomycin Load Y/N: Yes Load Dose Date Time Vancomycin Load Dose: 1.5GM Date: 10/14 Time: 0400 Vancomycin Dose Date: 10/14/19. Current Vancomycin Dose: [1 GM IV Q12H] Intermittent Dosing?: No Labs Micro Microbiology 10/13/19 Blood Culture, Received Pending 10/13/19 Blood Culture, Received Pending 10/13/19 Respiratory Virus Panel (PCR) (ANA PAULA) - Final, Complete Creatinine Clearance Date:10/14/19. Creatinine Clearance: [75 ]. Assessment and Plan Maintaining Current Dose?: Yes Reason for dose change: No Dose Change Pharmacist Note Pharmacist Note Date: 10/14/19. Pharmacist note:79 YOM ADMITTED W/ POSSIBLE MRSA PNEUMONIA,SCR=0.92, CRCL=75,EMPIRIC DOSING WITH CEFTRIAXONE 1 GRAM IV Q24H , AZITHROMYCIN 500MG IV Q24H,AND PHARMACY DOSED VANCOMYCIN.MRSA PCR ORDERED. vANCOMYCIN 1.5 GRAM ADMINISTERED IN ed@0400, THEN WILL BEGIN 1 GRAM IV [id number] @1700.. FIRST TROUGH IS SCHEDULED FOR 10/15@1600. WILL ASSESS MRSA PCR WHEN AVAILABLE AND WILL CONTINUE TO FOLLOW PATIENT LABS.ADJUSTMENTS WILL BE MADE NEEDED MELONIE [facility]OR[facility] Oct 14, 2019 07:00
[2019-10-14 08:00] VITALS: BP 128/78
[2019-10-14] MEDS: predniSONE 20 MG TAB PO SCH (09:15)
[2019-10-14] MEDS: DOCUSATE SODIUM 100 MG CAP PO SCH ×2 (09:15→21:12)
[2019-10-14] MEDS: PANTOPRAZOLE 40MG INJ (PROTONIX) (C9113) IV SCH (09:16)
[2019-10-14] MEDS: ENOXAPARIN 40 MG/0.4 ML SYRINGE (J1650) SC SCH (09:16)
--- NOTE | 2019-10-14 09:58 | IPNPDOC ---
Subjective Date Seen The patient was seen on 10/14/19. Subjective Chief Complaint/HPI Patient is slightly better but no cough or phlegm General: Denies: ROS Unobtainable, Chills, Night Sweats, Fatigue, Malaise, Normal Appetite, Other Symptoms Constitutional: Denies: Chills, Fever, Malaise, Night Sweats, Weakness, Fatigue, Weight Loss, Lethargy, Other Skin: Denies: Rash, Lesions, Jaundice, Bruising, Itching, Dry, Breakdown, Nail Changes, Other Pulmonary: Denies: Dyspnea, Cough, Pleuritic Chest Pain, Other Symptoms Cardiovascular: Denies: Chest Pain, Palpitations, Orthopnea, Paroxysmal Noc. Dyspnea, Edema, Lt Headedness, Other Symptoms Gastrointestinal: Denies: Nausea, Vomiting, Abdominal Pain, Diarrhea, Constipation, Melena, Hematochezia, Other Symptoms Genitourinary: Denies: Dysuria, Frequency, Incontinence, Hematuria, Retention, Other Symptoms Musculoskeletal: Denies: Neck Pain, Back Pain, Shoulder Pain, Arm Pain, Hand Pain, Leg Pain, Foot Pain, Joint Pain, Muscle Pain, Spasms, Other Symptoms Neurological: Denies: Weakness, Numbness, Incoordination, Change in speech, Confusion, Seizures, Other Symptoms Objective Physical Examination General Exam: Positive: Alert, Cooperative Eye Exam: Positive: PERRLA, Conjunctiva & lids normal Heart Exam: Positive: Rate Normal, Normal S1, Normal S2 Abdomen Exam: Positive: Normal bowel sounds, Soft, Tenderness Extremity Exam: Positive: Normal pulses Skin Exam: Positive: Nl turgor and temperature Neuro Exam: Positive: Strength at 5/5 X4 ext Assessment /Plan Problems (1) Pneumonia Status: Acute Problem Text: Right lower lobe pneumonia on CT chest Symptoms include fever, dry cough, and tachypnea per patient. His O2 sats dropped to 83% on room air He does not have a fever or leukocytosis . Respiratory panel was negative Reports from the Chest x-ray and CT of the abdomen have been reviewed Continue ceftriaxone and Zithromax DC vancomycin. No evidence of MRSA Diet and activity as per orders A.m. labs (2) Asthma Status: Acute Problem Text: Mild Asthma Exacerbation Likely due to pneumonia ABG &influenza panel unremarkable He received magnesium sulfate & Solu-Medrol Continue DuoNeb and prednisone as per orders Continue O2 support as needed Plan/VTE VTE Prophylaxis Ordered?: Yes VS, I&O, 24H, [facility] Vital Signs/I&O Vital Signs Date Time Temp Pulse Resp B/P (MAP) Pulse Ox O2 Delivery O2 Flow Rate FiO2 10/14/19 08:00 98.4 95 16 128/78 (95) 93 Nasal Cannula 2.0 I&O- Last 24 Hours up to 6 AM 10/14/19 06:00 Intake Total 1805 ml Output Total 1645 ml Balance 160 ml Laboratory Data 24H LABS Laboratory Tests 2 10/13/19 17:52: Nucleated Red Blood Cells % (auto) 0.0, Urine Color YELLOW, Urine Appearance CLEAR, Urine pH 5.0, Urine Specific [place] 1.017, Urine Protein NEGATIVE, Urine Glucose (UA) NEGATIVE, Urine Ketones NEGATIVE, Urine Blood NEGATIVE, Urine Nitrite NEGATIVE, Urine Bilirubin NEGATIVE, Urine Urobilinogen 0.2, Urine Leukocyte Esterase NEGATIVE, Urine WBC (Auto) 0, Urine RBC (Auto) 1, Urine Hyaline Casts (Auto) 0, Urine Bacteria (Auto) NEGATIVE, Urine Squamous Epithelial Cells 0, Urine Mucus (Auto) SMALL, Urine Sperm (Auto) , Anion Gap 11, Glomerular Filtration Rate > 60.0, Calcium Level 8.1L, Magnesium Level 1.9, Total Bilirubin 0.3, Direct Bilirubin 0.1, Aspartate Amino Transf (AST/SGOT) 3 8H, Alanine Aminotransferase (ALT/SGPT) 48, Alkaline Phosphatase 96, Total Protein 5.8L, Albumin 2.2L, Albumin/Globulin Ratio 0.61L 10/13/19 21:44: Magnesium Level 2.0, Prothrombin Time 15.0H, Prothromb Time International Ratio 1.21, Activated Partial Thromboplast Time 30.0, Lactic Acid Level 1.4 10/13/19 22:52: Blood Gas Bicarbonate Standard 22.9, Arterial Blood pH 7.462H, Arterial Blood Partial Pressure CO2 30.1L, Arterial Blood Partial Pressure O2 106.3H, Arterial Blood Total CO2 21.9L, Arterial Blood HCO3 21.0L, Arterial Blood Base Excess - 1.8, Arterial Blood Oxygen Saturation 97.6 10/14/19 05:04: Nucleated Red Blood Cells % (auto) 0.0, Anion Gap 8, Glomerular Filtration Rate > 60.0, Calcium Level 8.4L, Magnesium Level 2.4 CBC/BMP Laboratory Tests 10/13/19 17:52 12/15/19 05:04 Microbiology Microbiology 10/13/19 Blood Culture, Received Pending 10/13/19 Blood Culture, Received Pending 10/13/19 Respiratory Virus Panel (PCR) (ANA PAULA) - Final, Complete JALIL ESCOBEDO MD Oct 14, 2019 09:58
[2019-10-14 12:00] VITALS: BP 134/75
[2019-10-14] MEDS: NS 1,000 ML IV SCH (14:50)
[2019-10-14 16:00] VITALS: BP 148/81
[2019-10-14] MEDS ORDERED: VANCOMYCIN HCL 1,000 MG, VIAL MATE ADAPTER 1 EACH in D5W 250 ML IV SCH (17:00)
[2019-10-14 20:00] VITALS: BP 134/65
[2019-10-14] MEDS: cefTRIAXone SOD 1 GM in D5W MINI-BAG PLUS 50 ML IV SCH (21:11)
[2019-10-15] VITALS (7 sets, daily range): BP systolic 110–148; BP diastolic 58–87
[2019-10-15] MEDS: AZITHROMYCIN INJ 500 MG, VIAL MATE ADAPTER 1 EACH in D5W 250 ML IV SCH ×2 (00:07→22:37)
[2019-10-15] MEDS: IPRATROPIUM 0.5MG/ALBUTEROL 2.5MG INH SOL UD 3ML (DUONEB)(J7620) INH SCH ×5 (04:09→20:03)
[2019-10-15] MEDS: BENZONATATE 100 MG CAP PO SCH ×3 (04:29→20:45)
[2019-10-15 05:30] LABS: BASO % 0.2 % (0.0-1.0); EOS % 0.1 % (0.0-3.0); HEMATOCRIT 30.8 % (42.0-52.0); HEMOGLOBIN 10.4 g/dl (13.5-17.5); LYMPH # 1.8 10^3/uL (1.5-5.0); LYMPH % 9.1 % (24.0-44.0); MEAN CORPUSCULAR HGB CONC 33.8 g/dl (32.0-36.5); MEAN CORPUSCULAR VOLUME 91.7 fl (80.0-96.0); MONO # 1.4 10^3/uL (0.0-0.8); MONO % 6.9 % (0.0-5.0); NEUTROPHILS # 16.2 10^3/uL (1.5-8.5); NEUTROPHILS % 82.8 % (36.0-66.0); PLATELET COUNT, AUTOMATED 378 10^3/uL (150-450); RED BLOOD COUNT 3.36 10^6/uL (4.30-6.10); WHITE BLOOD COUNT 19.6 10^3/uL (4.0-10.0)
[2019-10-15 05:53] LABS: ALBUMIN 1.8 GM/DL (3.2-5.2); ALT/SGPT 43 U/L (12-78); BILIRUBIN,TOTAL 0.1 MG/DL (0.2-1.0); BLOOD UREA NITROGEN 20 MG/DL (7-18); CALCIUM LEVEL 8.2 MG/DL (8.8-10.2); CARBON DIOXIDE LEVEL 23 MEQ/L (21-32); CHLORIDE LEVEL 111 MEQ/L (98-107); CREATININE FOR GFR 0.89 MG/DL (0.70-1.30); GLOMERULAR FILTRATION RATE > 60.0 (>42); GLUCOSE, FASTING 112 MG/DL (70-100); POTASSIUM SERUM 3.6 MEQ/L (3.5-5.1); SODIUM LEVEL 143 MEQ/L (136-145); TOTAL PROTEIN 5.7 GM/DL (6.4-8.2)
--- NOTE | 2019-10-15 09:11 | REP ---
Chest x-ray: Two views. History: Pneumonia. Comparison chest x-ray: October 13, 2019. Findings: The lungs are hyperinflated. There is slight blunting of the posterior and lateral pleural angles indicating small amounts of bilateral pleural fluid. Heart size is borderline. Cardiothoracic ratio measures 46.8%. Oral there are degenerative changes in the thoracic spine. Subtle increased markings seen in the right upper lung zone are improved from October 13, 2019. Impression: Hyperinflation, mildly prominent heart. Slight bilateral pleural angle blunting. Otherwise no active disease. Lung prado improved. Electronically Signed by Bismark Jenkins MD 10/15/2019 09:03 A
[2019-10-15] MEDS: predniSONE 20 MG TAB PO SCH (09:39)
[2019-10-15] MEDS: NORTRIPTYLINE 10 MG CAP PO SCH ×2 (09:39→20:46)
[2019-10-15] MEDS: BRIMONIDINE 0.15% OPHTH SOLN 5 ML OU SCH ×2 (09:40→20:46)
[2019-10-15] MEDS: ENOXAPARIN 40 MG/0.4 ML SYRINGE (J1650) SC SCH (09:40)
[2019-10-15] MEDS: DOCUSATE SODIUM 100 MG CAP PO SCH ×2 (09:40→20:45)
[2019-10-15] MEDS: PANTOPRAZOLE 40MG INJ (PROTONIX) (C9113) IV SCH (09:40)
--- NOTE | 2019-10-15 10:10 | IPNPDOC ---
Subjective Date Seen The patient was seen on 10/15/19. Subjective Chief Complaint/HPI Patient feeling much better today. Decreasing shortness of breath, no fever General: Denies: ROS Unobtainable, Chills, Night Sweats, Fatigue, Malaise, Normal Appetite, Other Symptoms Constitutional: Denies: Chills, Fever, Malaise, Night Sweats, Weakness, Fatigue, Weight Loss, Lethargy, Other Pulmonary: Denies: Dyspnea, Cough, Pleuritic Chest Pain, Other Symptoms Cardiovascular: Denies: Chest Pain, Palpitations, Orthopnea, Paroxysmal Noc. Dyspnea, Edema, Lt Headedness, Other Symptoms Gastrointestinal: Denies: Nausea, Vomiting, Abdominal Pain, Diarrhea, Constipation, Melena, Hematochezia, Other Symptoms Musculoskeletal: Denies: Neck Pain, Back Pain, Shoulder Pain, Arm Pain, Hand Pain, Leg Pain, Foot Pain, Joint Pain, Muscle Pain, Spasms, Other Symptoms Neurological: Denies: Weakness, Numbness, Incoordination, Change in speech, Confusion, Seizures, Other Symptoms Objective Physical Examination General Exam: Positive: Alert, Cooperative Eye Exam: Positive: PERRLA, Conjunctiva & lids normal Heart Exam: Positive: Rate Normal, Normal S1, Normal S2 Abdomen Exam: Positive: Normal bowel sounds, Soft, Tenderness Extremity Exam: Positive: Normal pulses Skin Exam: Positive: Nl turgor and temperature Neuro Exam: Positive: Strength at 5/5 X4 ext Assessment /Plan Problems (1) Pneumonia Status: Acute Problem Text: Right lower lobe pneumonia on CT chest Symptoms include fever, dry cough, and tachypnea per patient. His O2 sats dropped to 83% on room air He does not have a fever or leukocytosis . Respiratory panel was negative Reports from the Chest x-ray and CT of the abdomen have been reviewed Continue ceftriaxone and Zithromax DC vancomycin. No evidence of MRSA Will DC IV fluids today DC telemetry Repeat labs and chest x-ray in a.m. Possible discharge in a.m. (2) Asthma Status: Acute Problem Text: Mild Asthma Exacerbation Likely due to pneumonia ABG &influenza panel unremarkable He received magnesium sulfate & Solu-Medrol Continue DuoNeb and prednisone as per orders Continue O2 support as needed Plan/VTE VTE Prophylaxis Ordered?: Yes VS, I&O, 24H, Fishbone Vital Signs/I&O Vital Signs Date Time Temp Pulse Resp B/P (MAP) Pulse Ox O2 Delivery O2 Flow Rate FiO2 10/15/19 08:00 97.4 94 18 145/79 (101) 94 Nasal Cannula 1.0 I&O- Last 24 Hours up to 6 AM 10/15/19 06:00 Intake Total 1130 ml Output Total 650 ml Balance 480 ml Laboratory Data 24H LABS Laboratory Tests 2 10/15/19 04:55: Immature Granulocyte % (Auto) 0.9, Neutrophils (%) (Auto) 82.8H, Lymphocytes (%) (Auto) 9.1L, Monocytes (%) (Auto) 6.9H, Eosinophils (%) (Auto) 0.1, Basophils (%) (Auto) 0.2, Neutrophils # (Auto) 16.2H, Lymphocytes # (Auto) 1.8, Monocytes # (Auto) 1.4H, Eosinophils # (Auto) 0.0, Basophils # (Auto) 0.0, Nucleated Red Blood Cells % (auto) 0.0, Anion Gap 9, Glomerular Filtration Rate > 60.0, Calcium Level 8.2L, Total Bilirubin 0.1#L, Aspartate Amino Transf (AST/SGOT) 23, Alanine Aminotransferase (ALT/SGPT) 43, Alkaline Phosphatase 93, Total Protein 5.7L, Albumin 1.8L, Albumin/Globulin Ratio 0.46L CBC/BMP Laboratory Tests 10/15/19 04:55 Microbiology Microbiology 10/15/19 Gram Stain, Received Pending 10/15/19 Sputum Culture, Received Pending 10/13/19 Blood Culture - Preliminary, Resulted No growth after 24 hours . All specim... 10/13/19 Blood Culture - Preliminary, Resulted No growth after 24 hours . All specim... 10/13/19 Respiratory Virus Panel (PCR) (ANA PAULA) - Final, Complete JALIL ESCOBEDO MD Oct 15, 2019 10:10
[2019-10-15] MEDS ORDERED: SLF 3 ML SYR IV PRN (12:45)
[2019-10-15] MEDS: SLF 3 ML SYR IV SCH ×2 (15:01→20:47)
--- NOTE | 2019-10-15 17:15 | ECGEPIP ---
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
[2019-10-15] MEDS: TAMSULOSIN 0.4 MG CAP PO SCH (20:45)
[2019-10-15] MEDS: LATANOPROST 0.005% OPHTH SOLN 2.5 ML OU SCH (20:46)
[2019-10-15] MEDS: cefTRIAXone SOD 1 GM in D5W MINI-BAG PLUS 50 ML IV SCH (20:46)
[2019-10-16] MEDS: IPRATROPIUM 0.5MG/ALBUTEROL 2.5MG INH SOL UD 3ML (DUONEB)(J7620) INH SCH ×4 (00:22→12:00)
[2019-10-16 04:00] VITALS: BP 129/66
[2019-10-16] MEDS: BENZONATATE 100 MG CAP PO SCH ×2 (06:00→13:28)
[2019-10-16] MEDS: SLF 3 ML SYR IV SCH ×2 (06:07→13:29)
[2019-10-16 06:13] LABS: BASO % 0.2 % (0.0-1.0); EOS % 0.2 % (0.0-3.0); HEMATOCRIT 34.1 % (42.0-52.0); HEMOGLOBIN 11.1 g/dl (13.5-17.5); LYMPH # 1.8 10^3/uL (1.5-5.0); LYMPH % 13.6 % (24.0-44.0); MEAN CORPUSCULAR HEMOGLOBIN 30.2 pg (27.0-33.0); MEAN CORPUSCULAR HGB CONC 32.6 g/dl (32.0-36.5); MEAN CORPUSCULAR VOLUME 92.7 fl (80.0-96.0); MONO # 1.1 10^3/uL (0.0-0.8); MONO % 8.5 % (0.0-5.0); NEUTROPHILS # 10.2 10^3/uL (1.5-8.5); NEUTROPHILS % 76.1 % (36.0-66.0); PLATELET COUNT, AUTOMATED 423 10^3/uL (150-450); RED BLOOD COUNT 3.68 10^6/uL (4.30-6.10); WHITE BLOOD COUNT 13.4 10^3/uL (4.0-10.0)
[2019-10-16 06:42] LABS: ALT/SGPT 53 U/L (12-78); BILIRUBIN,TOTAL 0.4 MG/DL (0.2-1.0); BLOOD UREA NITROGEN 14 MG/DL (7-18); CALCIUM LEVEL 8.7 MG/DL (8.8-10.2); CARBON DIOXIDE LEVEL 23 MEQ/L (21-32); CHLORIDE LEVEL 110 MEQ/L (98-107); CREATININE FOR GFR 0.91 MG/DL (0.70-1.30); GLOMERULAR FILTRATION RATE > 60.0 (>42); GLUCOSE, FASTING 78 MG/DL (70-100); POTASSIUM SERUM 3.9 MEQ/L (3.5-5.1); SODIUM LEVEL 142 MEQ/L (136-145); TOTAL PROTEIN 5.9 GM/DL (6.4-8.2)
[2019-10-16 08:00] VITALS: BP 137/68
--- NOTE | 2019-10-16 08:29 | REP ---
Portable chest x-ray: Single view. History: Pneumonia. Comparison chest x-ray: October 15, 2019. Findings: The lungs are symmetrically aerated and clear. Pleural angles are sharp. Heart is not enlarged. Pulmonary vasculature is not increased. No significant bony abnormality is seen. Impression: No acute disease. Electronically Signed by Bismark Jenkins MD 10/16/2019 08:20 A
[2019-10-16] MEDS: DOCUSATE SODIUM 100 MG CAP PO SCH (09:00)
[2019-10-16] MEDS: PANTOPRAZOLE 40MG INJ (PROTONIX) (C9113) IV SCH (09:02)
[2019-10-16] MEDS: NORTRIPTYLINE 10 MG CAP PO SCH (09:02)
[2019-10-16] MEDS: predniSONE 20 MG TAB PO SCH (09:02)
[2019-10-16] MEDS: ENOXAPARIN 40 MG/0.4 ML SYRINGE (J1650) SC SCH (09:02)
[2019-10-16] MEDS: BRIMONIDINE 0.15% OPHTH SOLN 5 ML OU SCH (09:02)
[2019-10-16 12:00] VITALS: BP 126/80
[2019-10-16] MEDS ORDERED: LEVO750T13 PO (12:07)
--- NOTE | 2019-10-16 19:18 | DS.PDOC ---
Discharge Summary General Date of Admission Oct 13, 2019 at 21:20 Date of Discharge 10/16/2019 Attending Physician: RENEA BEGUM MD Discharge Summary PROCEDURES PERFORMED DURING STAY: None. ADMITTING DIAGNOSES: 1. Pneumonia. DISCHARGE DIAGNOSES: 1. Pneumonia. COMPLICATIONS/CHIEF COMPLAINT: Pneumonia;Sepsis. HISTORY OF PRESENT ILLNESS: 79-year-old male with past medical history of hypertension, BPH and osteoarthritis was admitted for pneumonia. He was treated with azithromycin, ceftriaxone with significant improvement in symptoms. He continues to have minimal cough at this time, no other complaints. Clinically, patient is back to his baseline, will discharge on Levaquin to complete his antibiotic course. He is clinically and hemodynamically stable for discharge and outpatient follow-up. HOSPITAL COURSE: As above. DISCHARGE MEDICATIONS: Please see below. ALLERGIES: Please see below. PHYSICAL EXAMINATION: VITAL SIGNS: Please see below. GENERAL: No distress HEENT: Normocephalic, atraumatic, moist mucous membranes NECK: Supple CARDIOVASCULAR EXAMINATION: S1, S2, no murmurs RESPIRATORY EXAMINATION: Scattered rhonchi, no wheezing ABDOMINAL EXAMINATION: Soft, nontender, nondistended, positive bowel sounds EXTREMITIES: Range of motion intact SKIN: No rash NEUROLOGICAL EXAMINATION: Alert and oriented 3, no focal deficits PSYCHIATRIC EXAMINATION: Calm and cooperative LABORATORY DATA: Please see below. PROGNOSIS: Fair ACTIVITY: As tolerated. DIET: Cardiac DISCHARGE PLAN: Follow with PCP in 1-2 weeks DISPOSITION: 01 Home, Self-Care. DISCHARGE INSTRUCTIONS: 1. As above. DISCHARGE CONDITION: Stable. TIME SPENT ON DISCHARGE: Greater than 34 minutes. Vital Signs/I&Os Vital Signs Date Time Temp Pulse Resp B/P (MAP) Pulse Ox O2 Delivery O2 Flow Rate FiO2 10/16/19 12:00 97.6 92 16 126/80 (95) 94 Room Air 10/15/19 12:00 1.0 I&O- Last 24 Hours up to 6 AM 10/16/19 06:00 Intake Total 2060 ml Output Total 400 ml Balance 1660 ml Laboratory Data Labs 24H Laboratory Tests 2 10/16/19 05:47: Immature Granulocyte % (Auto) 1.4, Neutrophils (%) (Auto) 76.1H, Lymphocytes (%) (Auto) 13.6L, Monocytes (%) (Auto) 8.5H, Eosinophils (%) (Auto) 0.2, Basophils (%) (Auto) 0.2, Neutrophils # (Auto) 10.2H, Lymphocytes # (Auto) 1.8, Monocytes # (Auto) 1.1H, Eosinophils # (Auto) 0.0, Basophils # (Auto) 0.0, Nucleated Red Blood Cells % (auto) 0.0, Anion Gap 9, Glomerular Filtration Rate > 60.0, Calciu m Level 8.7L, Total Bilirubin 0.4#, Aspartate Amino Transf (AST/SGOT) 27, Alanine Aminotransferase (ALT/SGPT) 53, Alkaline Phosphatase 91, Total Protein 5.9L, Albumin 2.0L, Albumin/Globulin Ratio 0.51L CBC/BMP Laboratory Tests 10/16/19 05:47 Microbiology Microbiology 10/15/19 Gram Stain - Final, Complete 10/15/19 Sputum Culture - Final, Complete 10/13/19 Blood Culture - Preliminary, Resulted No Growth after 48 hours. All Specime... 10/13/19 Blood Culture - Preliminary, Resulted No Growth after 72 hours. All specime... 10/13/19 Respiratory Virus Panel (PCR) (ANA PAULA) - Final, Complete Discharge Medications Scheduled Brimonidine Tartrate (Brimonidine Tartrate) 0.15% 5ML Drops, 1 DROP OU BID, (Reported) Latanoprost (Xalatan) 0.005% 2.5ML Drops, 1 DROP OU QHS, (Reported) Levofloxacin (Levofloxacin) 750 Mg Tablet, 750 MG PO DAILY Nortriptyline HCl (Nortriptyline HCl) 10 Mg Capsule, 10 MG PO BID, (Reported) Tamsulosin Hcl (Tamsulosin HCl) 0.4 Mg Capsule, 0.4 MG PO QHS, (Reported) Scheduled PRN Salmeterol/Fluticasone (Advair 250-50 Diskus) 1 Each Blst.w.dev, 1 PUFF INH BID PRN for SEASONAL ALLERGY SYMPTOMS, (Reported) Allergies Coded Allergies: No Known Allergies (Unverified , 10/07/19) RENEA BEGUM MD Oct 16, 2019 19:18
== END 2019-10-16 13:58 | disposition home or self-care (01) | DRG 194 ==
LOC: M ED 15:54 → M ED INP 21:20 → M PCU 22:31
PROVIDERS: ADMIT Internal Medicine; ATTEND Internal Medicine
DX: J18.9 Pneumonia, unspecified organism (principal); J45.901 Unspecified asthma with (acute) exacerbation; M19.90 Unspecified osteoarthritis, unspecified site; I10 Essential (primary) hypertension; I71.2 Thoracic aortic aneurysm, without rupture; N40.0 Benign prostatic hyperplasia without lower urinary tract symptoms; Z79.899 Other long term (current) drug therapy

== ENCOUNTER → 2020-04-21 | Outpatient (REF) | payer MEDICARE ==
[~2020-04-21] MED LIST changes: +AZO URINARY P97.5 MG PO; -AZO1TAB PO; +LEVO750T13 PO
== END ==
LOC: M LAB REF 12:40
PROVIDERS: ATTEND Physician Assistant
DX: Z20.828 Contact with and (suspected) exposure to other viral communicable diseases (principal)

== ENCOUNTER 2021-03-20 09:21 | Emergency (ER) | payer MEDICARE ==
[~2021-03-20] VITALS: Ht 175.3 cm; Wt 95.5 kg
[2021-03-20] MEDS ORDERED: CEFD1CAP8 (09:32)
[2021-03-20 11:31] LABS: BASO % 0.3 % (0.0-1.0); EOS # 0.2 10^3/uL (0.0-0.5); EOS % 1.3 % (0.0-3.0); HEMATOCRIT 35.5 % (42.0-52.0); LYMPH # 1.8 10^3/uL (1.5-5.0); LYMPH % 13.8 % (24.0-44.0); MEAN CORPUSCULAR HEMOGLOBIN 31.4 pg (27.0-33.0); MEAN CORPUSCULAR HGB CONC 33.8 g/dl (32.0-36.5); MEAN CORPUSCULAR VOLUME 92.9 fl (80.0-96.0); MONO # 1.2 10^3/uL (0.0-0.8); MONO % 9.3 % (2.0-8.0); NEUTROPHILS # 9.7 10^3/uL (1.5-8.5); NEUTROPHILS % 74.9 % (36.0-66.0); PLATELET COUNT, AUTOMATED 236 10^3/uL (150-450); RED BLOOD COUNT 3.82 10^6/uL (4.30-6.10); WHITE BLOOD COUNT 12.9 10^3/uL (4.0-10.0)
[2021-03-20] MEDS ORDERED: NS 500 ML IV ONE (11:55)
[2021-03-20 11:59] LABS: ALBUMIN 2.9 GM/DL (3.2-5.2); ALT/SGPT 29 U/L (12-78); BILIRUBIN,DIRECT 0.1 MG/DL (0.0-0.2); BILIRUBIN,TOTAL 0.4 MG/DL (0.2-1.0); BLOOD UREA NITROGEN 16 MG/DL (7-18); CALCIUM LEVEL 8.1 MG/DL (8.8-10.2); CARBON DIOXIDE LEVEL 26 MEQ/L (21-32); CHLORIDE LEVEL 107 MEQ/L (98-107); CREATININE FOR GFR 0.96 MG/DL (0.70-1.30); GLOMERULAR FILTRATION RATE > 60.0 (>35); GLUCOSE, FASTING 110 MG/DL (70-100); POTASSIUM SERUM 3.7 MEQ/L (3.5-5.1); SODIUM LEVEL 139 MEQ/L (136-145); TOTAL PROTEIN 6.1 GM/DL (6.4-8.2)
[2021-03-20] MEDS ORDERED: ISOVUE-370 76% 100ML VIAL As Ordered ONE (12:08)
--- NOTE | 2021-03-20 12:45 | REP ---
INDICATION: concern for pyelonephritis. COMPARISON: 07/24/2012 the latest prior TECHNIQUE: Standard helical technique after the intravenous administration of 100 cc Isovue 370. No oral bowel preparatory contrast was administered prior to the exam. FINDINGS: There is no significant change in appearance of the lung bases. The liver, gallbladder, spleen, pancreas, and adrenal glands are within normal limits. 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 A few vague focal increased densities are seen within this large cyst which measures approximately 10 x 11 x 9.6 cm. This has increased in size from the prior exam. The abdominal aorta and para-aortic regions are within normal limits. There is colonic diverticulosis without evidence of diverticulitis. 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 There is no free fluid or free air. There is no significant change in appearance of the osseous structures. IMPRESSION: 1. Chronic left renal changes as described above. Urological consultation is suggested. 2. There is no CT evidence of pyelonephritis. 3. Other findings and chronic changes as described above. <Electronically signed by Lauro Vernon > 03/20/21 [id number]
[2021-03-20 13:08] VITALS: BP 137/82
== END 2021-03-20 13:29 | disposition home or self-care (01) ==
LOC: M ED 09:21
DX: N30.90 Cystitis, unspecified without hematuria (principal); N40.1 Benign prostatic hyperplasia with lower urinary tract symptoms; R50.9 Fever, unspecified; G57.63 Lesion of plantar nerve, bilateral lower limbs; J45.909 Unspecified asthma, uncomplicated; K57.92 Diverticulitis of intestine, part unspecified, without perforation or abscess without bleeding; Z87.440 Personal history of urinary (tract) infections; Z79.899 Other long term (current) drug therapy; Z79.2 Long term (current) use of antibiotics
CPT/HCPCS: 74177; 80048; 80076; 81001; 83605; 85025; 87040; 87086; 96360; 99284; Q9967

== ENCOUNTER → 2022-06-18 | Outpatient (CLI) | payer MEDICARE ==
[~2022-06-18] MED LIST changes: +CEFD300C41; +LEVO1TAB40 PO; -LEVO750T13 PO
[2022-06-18 10:27] LABS: BLOOD UREA NITROGEN 15 MG/DL (7-18); CALCIUM LEVEL 8.9 MG/DL (8.8-10.2); CARBON DIOXIDE LEVEL 24 MEQ/L (21-32); CHLORIDE LEVEL 109 MEQ/L (98-107); GLOMERULAR FILTRATION RATE > 60.0 (>35); GLUCOSE, FASTING 99 MG/DL (70-100); SODIUM LEVEL 137 MEQ/L (136-145)
== END ==
LOC: M WUC 08:21
PROVIDERS: ATTEND Physician Assistant Medical
DX: R97.20 Elevated prostate specific antigen [PSA] (principal); N40.1 Benign prostatic hyperplasia with lower urinary tract symptoms
CPT/HCPCS: 36415; 80048; G0103

== ENCOUNTER → 2025-05-09 | Outpatient (CLI) | payer MEDICARE ==
[~2025-05-09] MED LIST changes: +ACET-683 PO; +ADVA1AER9 INH; +ALPH0.156 OU; +B-12100010 PO; +CEFD1CAP9; -CEFD300C41; +CORE25TA PO; +D 1010002 PO; +FLON1SPR NARES; +MAGN400T2 PO; +METH-1165 PO; +OXYC-517 PO; +PANT40TA29 PO; +VENTAER INH
== END ==
LOC: M RAD 11:23
PROVIDERS: ATTEND Internal Medicine Pulmonary Disease
DX: J45.20 Mild intermittent asthma, uncomplicated (principal)

== ENCOUNTER → 2025-06-07 | Outpatient (CLI) | payer MEDICARE | LOC: M RAD 08:57 | PROVIDERS: ATTEND Neurological Surgery | DX: M53.2X4 Spinal instabilities, thoracic region (principal) ==

== ENCOUNTER → 2025-07-09 | Outpatient (REF) | payer MEDICARE | LOC: M LAB REF 12:44 | PROVIDERS: ATTEND Family Medicine | DX: E07.9 Disorder of thyroid, unspecified (principal) ==

== ENCOUNTER → 2025-07-26 | Outpatient (CLI) | payer MEDICARE | LOC: M RAD 10:30 | PROVIDERS: ATTEND Neurological Surgery | DX: M53.2X4 Spinal instabilities, thoracic region (principal) ==

== ENCOUNTER → 2025-08-07 | Outpatient (CLI) | payer MEDICARE ==
[2025-08-07 15:19] LABS: VITAMIN B12 LEVEL 356 PG/ML (211-911)
[2025-08-10 20:53] LABS: VITAMIN E(ALPHA TOCOPHEROL) 12.4 mg/L (5.7-19.9); VITAMIN E(GAMMA TOCOPHEROL) < 1.0 mg/L (<=4.3)
[2025-08-13 15:48] LABS: VITAMIN B1 LEVEL WHOLE BLOOD 121 nmol/L (78-185)
[2025-08-15 16:47] LABS: VITAMIN B6,PYRIDOXAL PHOSPHATE 8.2 ng/mL (2.1-21.7)
== END ==
LOC: M WUC 09:16
PROVIDERS: ATTEND Psychiatry & Neurology Neurology
DX: R41.3 Other amnesia (principal); E53.8 Deficiency of other specified B group vitamins; E51.9 Thiamine deficiency, unspecified; E53.1 Pyridoxine deficiency

== ENCOUNTER → 2025-10-18 | Outpatient (CLI) | payer MEDICARE | LOC: M RAD 09:26 | PROVIDERS: ATTEND Physician Assistant | DX: S22.009A Unspecified fracture of unspecified thoracic vertebra, initial encounter for closed fracture (principal); Y93.9 Activity, unspecified; Y92.9 Unspecified place or not applicable ==